=== PATIENT | female | born 1975 ===

== ENCOUNTER 2025-03-21 12:46 | Outpatient (CLI) | payer BC, SELFPAY ==
[2025-03-21 07:55] LABS: TSH (W/Ref FT4) 0.80 uIU/mL (0.36-3.74)
[2025-03-21 17:54] LABS: T3,Free 3.4 pg/mL (2.8-5.3)
[2025-03-31 13:31] LABS: T4,Free, Direct Dialysis 1.7 ng/dL (0.9-2.2)
== END 2025-03-21 12:47 | disposition home or self-care (01) ==
LOC: LBO 12:46
PROVIDERS: Visit Provider Obstetrics & Gynecology
DX: N92.0 Excessive and frequent menstruation with regular cycle (principal); E07.9 Disorder of thyroid, unspecified
CPT/HCPCS: 36415; 84443; 84481